=== PATIENT | male | born 1950 | race American Indian/Alaskan Native ===

== ENCOUNTER 2016-08-21 10:43 | Day surgery (SDC) | payer MEDICARE ==
--- NOTE | 2016-08-21 13:12 | CP.SDSHP ---
Same Day Surgery H & P - History Proposed Procedure: colonoscopy - Previous Medical/Surgical History Cardiac: Hypertension, Arrhythmia - Allergies Allergies: Allergies pollen extracts Allergy (Verified 08/21/16 12:05) CONGESTION - Physical Exam Vital Signs: Vital Signs 08/21/16 11:30 Temperature 98.0 F Pulse Rate 77 Respiratory 19 Rate Blood Pressure 116/53 L O2 Sat by Pulse 100 Oximetry - Date & Time Date: 08/21/16 Time: 13:12 Short Stay Discharge - Short Stay Discharge Admitting Diagnosis/Reason for Visit: RECTAL BLEEDING, HISTORY OF COLONIC POLYPS Disposition: HOME/ ROUTINE
[2016-08-21] MEDS ORDERED: Lidocaine Hydrochloride 5 ML INJ ONE (13:44)
[2016-08-21] MEDS ORDERED: Propofol 10 mg/ml Inj (20 ML) ONE (13:44)
[2016-08-21] MEDS ORDERED: Simethicone 40 mg/0.6 ml Liquid (30 ml) ONE (13:50)
[2016-08-21] MEDS ORDERED: Metoprolol 1 mg/ml Inj IVP ONE (13:50)
[2016-08-21 15:39] VITALS: TEMP 97
[2016-08-21 16:03] VITALS: BP 123/71; PULSE 70; RESP 18; O2SAT 98
== END 2016-08-21 15:52 | disposition home or self-care (01) ==
LOC: C.ENDO 10:43
PROVIDERS: ATTEND Colon & Rectal Surgery
DX: K63.5 Polyp of colon (principal); K64.8 Other hemorrhoids; I10 Essential (primary) hypertension; I49.9 Cardiac arrhythmia, unspecified
CPT/HCPCS: 45380; 88305; J2704

== ENCOUNTER 2016-09-29 06:29 | Day surgery (SDC) | payer MEDICARE ==
[2016-09-29 06:52] VITALS: BMI 28.4
[2016-09-29] MEDS ORDERED: Lidocaine 4% (Laryng-O-Jet) Kit MM ONE (07:46)
[2016-09-29] MEDS ORDERED: Propofol 10 mg/ml Inj (20 ML) ONE ×2 (08:08→08:32)
[2016-09-29] MEDS ORDERED: Phenylephrine 10 mg/ml Inj ONE (08:09)
[2016-09-29] MEDS ORDERED: ePHEDrine 50 mg/ml Inj ONE (08:09)
[2016-09-29 12:08] VITALS: BP 122/53; PULSE 71; RESP 16; TEMP 97.8; O2SAT 100
--- NOTE | 2016-10-03 | CARD ---
APPROVED REPORT EKG Measurement Heart [id number] <Conclusion> Sinus rhythm with premature atrial complexes Inferior infarct, age undetermined Abnormal ECG
--- NOTE | 2016-10-03 19:30 | CARD ---
APPROVED REPORT EXAM: Transesophageal echocardiogram with color flow Doppler and Synchronized Cardioversion. INDICATION Atrial Fibrillation Mitral Valve E/A ratio0.0 TDI E/Lateral E'0.0E/Medial E'0.0 Reason For Test : Rule out Intracardiac Thrombus. PROCEDURE After obtaining informed consent, patient underwent transesophageal echo in the [employer]. Type of Sedation : Conscious Sedation Sedation was provided by anesthesiologist. Sedation was achieved with intravenously. The DANIELE was performed complications. Synchronized Cardioversion acheived with 100 Joules after 1 attempt(s). Rhythm following Synchronized Cardioversion: Normal Sinus Rhythm Throughout the procedure, the blood pressure, pulse oximetry, cardiac rhythm, and rate were monitored. The patient tolerated the procedure without adverse effects. Recovery from conscious sedation was uneventful and vital signs were stable. LEFT VENTRICLE The left ventricle is normal size. The left ventricular function is normal. The left ventricular ejection fraction is within the normal range. There is normal LV segmental wall motion. No left ventricle thrombus noted on this study. There is no ventricular septal defect visualized. There is no left ventricular aneurysm. RIGHT VENTRICLE The right ventricle is normal size. The right ventricular systolic function is normal. ATRIA LA Dilated RA Dilated Atrial septum Normal. DC free of thrombus AORTIC VALVE The aortic valve is normal in structure. No aortic regurgitation is present. There is no aortic valvular stenosis. There is no aortic valvular vegetation. MITRAL VALVE The mitral valve is normal in structure. There is no evidence of mitral valve prolapse. There is no mitral valve stenosis. Mitral regurgitation is moderate. TRICUSPID VALVE The tricuspid valve is normal in structure. There is mild tricuspid regurgitation. There is no tricuspid valve prolapse or vegetation. There is no tricuspid valve stenosis. PULMONIC VALVE The pulmonary valve is normal in structure. There is no pulmonic valvular regurgitation. There is no pulmonic valvular stenosis. GREAT VESSELS The aortic root is normal in size. <Conclusion> S/P successful Cardioversion from A fib to NSR The left ventricular function is normal. The left ventricular ejection fraction is within the normal range. The right ventricle is normal size. LA Dilated RA Dilated Atrial septum Normal. DC free of thrombus Mitral regurgitation is moderate. No evidence of Intra cardiac thrombus
== END 2016-09-29 12:10 | disposition home or self-care (01) ==
LOC: C.CATHLAB 06:29
PROVIDERS: ATTEND Internal Medicine Cardiovascular Disease
DX: I48.91 Unspecified atrial fibrillation (principal); R06.00 Dyspnea, unspecified; I34.0 Nonrheumatic mitral (valve) insufficiency
CPT/HCPCS: 36415; 85610; 85730; 92960; 93005; 93312; 94770; J2001; J2704

== ENCOUNTER 2016-10-23 22:00 | Emergency (ER) | payer MEDICARE ==
[2016-10-23 22:01] VITALS: BMI 28.4
[2016-10-23 22:18] VITALS: RESP 18; O2SAT 98
[2016-10-23] MEDS ORDERED: Sodium Chloride 0.9% 1,000 ML IV ONE (22:42)
[2016-10-23 23:01] LABS: BASO # 0.1 K/uL (0.0-0.2); BASO % 0.8 % (0.0-2.0); EOS # 0.3 K/uL (0.0-0.7); HEMATOCRIT 39.7 % (35.0-51.0); LYMPH % 38.6 % (20.0-40.0); MEAN CELL VOLUME 88.4 fL (80.0-94.0); MEAN CORPUSCULAR HEMOGLOBIN 30.5 pg (27.0-31.0); MEAN CORPUSCULAR HGB CONC 34.5 g/dL (33.0-37.0); MEAN PLATELET VOLUME 7.8 fL (7.2-11.7); MONO # 0.8 K/uL (0.0-0.8); MONO % 9.8 % (0.0-10.0); RED CELL DISTRIBUTION WIDTH 12.6 % (11.5-14.5); WHITE BLOOD COUNT 7.8 K/uL (4.8-10.8)
[2016-10-23 23:06] LABS: RBC URINE 62 /hpf (0-3); URINE BILIRUBIN NEGATIVE (NEGATIVE); URINE BLOOD 3+ (NEGATIVE); URINE GLUCOSE (UA) NORMAL (Normal); URINE KETONE NEGATIVE (NEGATIVE); URINE LEUKOCYTE ESTERASE TRACE Leu/uL (Negative); URINE PROTEIN 1+ mg/dL (NEGATIVE); URINE UROBILINOGEN NORMAL mg/dL (0.2-1.0); WBC URINE 12 /hpf (0-5)
[2016-10-23 23:08] LABS: URINE COLOR LIGHT RED (YELLOW)
[2016-10-23 23:09] LABS: INR 2.5
[2016-10-23 23:10] LABS: POTASSIUM 4.1 mmol/L (3.6-5.2)
[2016-10-23 23:12] LABS: ALB/GLOB RATIO 1.2 (1.0-2.1); BILIRUBIN,TOTAL 0.5 mg/dL (0.2-1.3); TOTAL PROTEIN 7.7 g/dL (6.3-8.3)
[2016-10-23 23:13] LABS: CALCIUM 9.2 mg/dl (8.6-10.4)
--- NOTE | 2016-10-23 23:43 | C.PDOC ---
History Of Present Illness 66 year old male who was sent to the ER by PMD for hematuria. Patient had a TURP done a few days ago and was placed back on xarelto yesterday by PMD. Patient states he noticed blood in his urine after he was straining while having a bowel movement. Denies dysuria or abdominal pain. Chief Complaint (Nursing): Male Genitourinary History Per: Patient History/Exam Limitations: no limitations Onset/Duration Of Symptoms: Hrs Current Symptoms Are (Timing): Still Present Associated Symptoms: Urinary Symptoms (Hematuria). denies: Fever, Chills, Nausea, Vomiting Alleviating Factors: None Recent travel outside of the [place]: No Past Medical History Reviewed: Historical Data, Nursing Documentation, Vital Signs Vital Signs: Last Vital Signs Temp 97.7 F 10/23/16 23:59 Pulse 76 10/23/16 23:59 Resp 18 10/23/16 23:59 BP 130/84 10/23/16 23:59 Pulse Ox 98 10/24/16 00:40 - Medical History PMH: Arthritis, Cardia Arrhythmia (ATRIAL FIBRILLATION), Colonic Polyps, HTN, Hypercholesterolemia Surgical History: No Surg Hx Family History: States: Unknown Family Hx - Social History Hx Alcohol Use: Yes Hx Substance Use: No Review Of Systems Constitutional: Negative for: Fever, Chills Gastrointestinal: Negative for: Abdominal Pain Genitourinary: Positive for: Hematuria. Negative for: Dysuria Physical Exam - Physical Exam Appears: Non-toxic, No Acute Distress Skin: Normal Color, Warm, Dry Head: Atraumatic, Normacephalic Oral Mucosa: Moist Chest: Symmetrical, No Tenderness Cardiovascular: Rhythm Regular, No Murmur Respiratory: Normal Breath Sounds, No Rales, No Rhonchi, No Wheezing Gastrointestinal/Abdominal: Soft, No Tenderness Rectal: Normal Exam, Other (More blood in urine noticed during rectal) Male Genital: Other (Pinkish tinged urine noticed, more water than blood) Neurological/Psych: Oriented x3, Normal Speech, Normal Cognition ED Course And Treatment - Laboratory Results Result Diagrams: 10/23/16 22:57 10/23/16 22:57 O2 Sat by Pulse Oximetry: 98 (Room air) Pulse Ox Interpretation: Normal Progress Note: Blood work and urinalysis ordered. IV fluids administered. Dr. Heriberto Lemons made aware of patient and advises to discharge patient, will see him in office. Disposition Discussed With : Heriberto Lemons Doctor Will See Patient In The: Office Counseled Patient/Family Regarding: Diagnosis - Disposition Referrals: Heriberto Lemons MD [Staff Provider] - Disposition: HOME/ ROUTINE Disposition Time: 00:25 Condition: STABLE Prescriptions: Ciprofloxacin [Cipro] 1 tab PO BID #14 tab Instructions: Acute Hematuria (DC) Forms: [employer] ([place]an) - POA Present On Arrival: None - Clinical Impression Clinical Impression: Hx of hematuria, H/O prostatectomy - Scribe Statement The provider has reviewed the documentation as recorded by the Scribe Hao Burr All medical record entries made by the Scribe were at my direction and personally dictated by me. I have reviewed the chart and agree that the record accurately reflects my personal performance of the history, physical exam, medical decision making, and the department course for this patient. I have also personally directed, reviewed, and agree with the discharge instructions and disposition.
[2016-10-24] VITALS: BP 130/84; PULSE 76; TEMP 97.7
== END 2016-10-24 00:45 | disposition home or self-care (01) ==
LOC: SUPCPDRO 22:00 → C.ER 22:00
DX: R31.9 Hematuria, unspecified (principal); Z98.890 Other specified postprocedural states
CPT/HCPCS: 80053; 81001; 85025; 85610; 85730; 86850; 86870; 86900; 87086; 99285; J7040

== ENCOUNTER 2017-06-04 08:13 | Day surgery (SDC) | payer MEDICARE ==
[2016-11-30 08:15] VITALS: BMI 28.4
[2017-06-04 08:46] VITALS: O2SAT 100
[2017-06-04] MEDS ORDERED: Lactated Ringer's 500 ML IV ONE (11:08)
[2017-06-04] MEDS ORDERED: Etomidate 20 mg/10ml Inj IV ONE (11:22)
[2017-06-04] MEDS ORDERED: Midazolam 2 MG/2 ML VIAL ONE (11:22)
--- NOTE | 2017-06-04 11:33 | CP.PCM.PCO ---
Physician Communication Note - Physician Communication Note Physician Communication Note: Spoke with Dr Garcia [phone] and got cardiac clearance for colonoscopy
[2017-06-04] MEDS ORDERED: Propofol 10 mg/ml Inj (20 ML) ONE (12:25)
[2017-06-04 12:53] VITALS: TEMP 98.1
[2017-06-04 13:45] VITALS: BP 129/87; PULSE 88; RESP 16
== END 2017-06-04 15:50 | disposition home or self-care (01) ==
LOC: C.ENDO 08:13
PROVIDERS: ATTEND Internal Medicine Gastroenterology
DX: Z12.11 Encounter for screening for malignant neoplasm of colon (principal); K64.8 Other hemorrhoids; I10 Essential (primary) hypertension; J45.909 Unspecified asthma, uncomplicated; I49.9 Cardiac arrhythmia, unspecified; G47.33 Obstructive sleep apnea (adult) (pediatric); E55.9 Vitamin D deficiency, unspecified; J30.2 Other seasonal allergic rhinitis; Z86.718 Personal history of other venous thrombosis and embolism; Z98.890 Other specified postprocedural states; Z79.899 Other long term (current) drug therapy; Z88.0 Allergy status to penicillin
CPT/HCPCS: G0121; J2250; J2704; J7120